=== PATIENT | female | born 1930 | race African-American/Black ===

== ENCOUNTER 2018-11-22 11:34 | Emergency (ER) | payer MEDICARE ==
[~2018-11-22] VITALS: Ht 170.2 cm; Wt 69.4 kg
--- NOTE | 2018-11-22 12:55 | RAD ---
Number CT HEAD AND CERVICAL SPINE WO Clinical indications: FALL 2 DAYS AGO. HEAD INJURY. COMPARISON: None available. NONCONTRAST HEAD CT Technique: Noncontrast axial cross sectional scanning of the head was performed. PQRS compliance Statement One or more of the following individualized dose reduction techniques were utilized for this study: 1. Automated exposure control 2. Adjustment of the mA and/or kV according to patient size 3. Use of iterative reconstruction technique Findings: No acute intracranial hemorrhage or midline shift or mass-effect or hydrocephalus or extra-axial fluid collection is seen. Mild bilateral periventricular white matter hypodensity is seen consistent with chronic small vessel ischemic disease in this age group. No skull fracture or pneumocephalus is seen. No opacification of the mastoid sinuses or the paranasal sinuses is seen. The maxillary sinuses are not completely seen in this study. Impression: No acute intracranial abnormality is seen. Laceration injury and small subcutaneous soft tissue swelling of the upper posterior midline of the head is seen. No skull fracture is evident. NONCONTRAST CERVICAL SPINE CT TECHNIQUE: Noncontrast helical CT scanning of the cervical spine was performed. Multiplanar 2-D reconstructions were generated. FINDINGS: No acute fracture or discitis or lytic process is evident. Grade 1 anterolisthesis of C2-3 and C3-4 and C7-T1 is seen. This is secondary to degenerative facet arthropathy. No perching of facet joints is evident. There is significant degenerative disc space narrowing and endplate spurring at C4-5 and C5-6 and C6-7 and to a lesser extent C7-T1. This is also seen at T1-T2. Moderate spinal canal stenosis is seen at C4-5 and C5-6 and C6-7. IMPRESSION: No acute fracture. Degenerative cervical spondylosis. Electronically signed by: John Doran MD (11/22/2018 12:52 PM) [id number]
[2018-11-22 12:58] LABS: BILIRUBIN,URINE NEGATIVE (NEG); CLARITY,URINE CLEAR; COLOR,URINE YELLOW; NITRITE,URINE NEGATIVE (NEG); PROTEIN,URINE NEGATIVE (NEG-TRACE)
[2018-11-22 13:16] LABS: SQUAMOUS EPITHELIAL CELL,UR MOD /LPF
[2018-11-22 13:17] LABS: BACTERIA,URINE 0 /HPF (0-FEW); RBC,URINE 0 /HPF (0-2)
[2018-11-22 14:00] VITALS: BP 183/81
[2018-11-22] MEDS ORDERED: CEPH500T PO (14:12)
--- NOTE | 2018-11-22 14:13 | PHYS DOC ---
Past Medical History Past Medical History: High Cholesterol, Hypertension Past Surgical History: No Surgical History Alcohol Use: None Drug Use: None Adult General Chief Complaint Chief Complaint: MECHANICAL FALL HPI HPI Patient is a 88 year old female with history of high cholesterol, hypertension , who presents to the ED today to be evaluated after falling 2 days ago. Patient herself has no complaints. Patient is in the ED with the daughter who states they are driving to [place] tomorrow and would like patient to be checked out to make sure everything is okay before they proceed for their trip. Patient herself states she was ambulating, she states she lost her balance and fell back hitting her head on the ground. Patient denies any loss of consciousness, denies being on any anticoagulants. Denies any pain anywhere today. Review of Systems Review of Systems Constitutional: Denies fever or chills [] Eyes: Denies change in visual acuity, redness, or eye pain [] HENT: Denies nasal congestion or sore throat [] Respiratory: Denies cough or shortness of breath [] Cardiovascular: No additional information not addressed in HPI [] GI: Denies abdominal pain, nausea, vomiting, bloody stools or diarrhea [] : Denies dysuria or hematuria [] Musculoskeletal: Denies back pain or joint pain [] Integument: Denies rash or skin lesions [] Neurologic: Hit head on the ground. Denies headache, focal weakness or sensory changes [] All other systems were reviewed and found to be within normal limits, except as documented in this note. Allergies Allergies Allergies Coded Allergies Type Severity Reaction Last Updated Verified No Known Drug Allergies 11/22/18 No Physical Exam Physical Exam Constitutional: Well developed, well nourished, no acute distress, non-toxic appearance. [] HENT: Normocephalic, atraumatic, bilateral external ears normal, oropharynx moist, no oral exudates, nose normal. [] Eyes: PERRLA, EOMI, conjunctiva normal, no discharge. [] Neck: Normal range of motion, no tenderness, supple, no stridor. [] Cardiovascular:Heart rate regular rhythm, no murmur [] Lungs & Thorax: Bilateral breath sounds clear to auscultation [] Abdomen: Bowel sounds normal, soft, no tenderness, no masses, no pulsatile masses. [] Skin: Warm, dry, no erythema, no rash. [] Back: No tenderness, no CVA tenderness. [] Extremities: No tenderness, no cyanosis, no clubbing, ROM intact, no edema. [] Neurologic: Alert and oriented X 3, normal motor function, normal sensory function, no focal deficits noted. Cranial nerves II through XII intact. Dried blood noted on posterior scalp with a small hematoma. Psychologic: Affect normal, judgement normal, mood normal. [] Current Patient Data Vital Signs Vital Signs Date Time Temp Pulse Resp B/P (MAP) Pulse Ox O2 Delivery O2 Flow Rate FiO2 11/22/18 12:30 84 20 96 11/22/18 11:40 98.4 178/86 (116) Room Air 98.4 Lab Values Laboratory Tests Test 11/22/18 12:48 Urine Collection Type Unknown Urine Color Yellow Urine Clarity Clear Urine pH 6.0 Urine Specific [place] 1.010 Urine Protein Negative mg/dL (NEG-TRACE) Urine Glucose (UA) Negative mg/dL (NEG) Urine Ketones (Stick) Negative mg/dL (NEG) Urine Blood Negative (NEG) Urine Nitrite Negative (NEG) Urine Bilirubin Negative (NEG) Urine Urobilinogen Dipstick 1.0 mg/dL (0.2 mg/dL) Urine Leukocyte Esterase Small (NEG) Urine RBC 0 /HPF (0-2) Urine WBC 1-4 /HPF (0-4) Urine Squamous Epithelial Cells Mod /LPF Urine Transitional Epithelial Cells Occ /LPF Urine Renal Epithelial Cells Few /LPF Urine Bacteria 0 /HPF (0-FEW) Urine Mucus Mod /LPF EKG EKG [] Radiology/Procedures Radiology/Procedures []PROCEDURE: CT HEAD AND CERVICAL SPINE WO ADDENDUM Addendum: 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 Electronically signed by: Paulina Doran MD (11/22/2018 1:08 PM) [id number] DICTATED AND SIGNED BY: PAULINA DORAN MD DATE: 11/22/18 0105 CC: JAMES MUSTAFA APRN; NON,STAFF; UNKNOWN PCP NAME ~ Number CT HEAD AND CERVICAL SPINE WO Clinical indications: FALL 2 DAYS AGO. HEAD INJURY. COMPARISON: None available. NONCONTRAST HEAD CT Technique: Noncontrast axial cross sectional scanning of the head was performed. PQRS compliance Statement One or more of the following individualized dose reduction techniques were utilized for this study: 1. Automated exposure control 2. Adjustment of the mA and/or kV according to patient size 3. Use of iterative reconstruction technique Findings: No acute intracranial hemorrhage or midline shift or mass-effect or hydrocephalus or extra-axial fluid collection is seen. Mild bilateral periventricular white matter hypodensity is seen consistent with chronic small vessel ischemic disease in this age group. No skull fracture or pneumocephalus is seen. No opacification of the mastoid sinuses or the paranasal sinuses is seen. The maxillary sinuses are not completely seen in this study. Impression: No acute intracranial abnormality is seen. Laceration injury and small subcutaneous soft tissue swelling of the upper posterior midline of the head is seen. No skull fracture is evident. NONCONTRAST CERVICAL SPINE CT TECHNIQUE: Noncontrast helical CT scanning of the cervical spine was performed. Multiplanar 2-D reconstructions were generated. FINDINGS: No acute fracture or discitis or lytic process is evident. Grade 1 anterolisthesis of C2-3 and C3-4 and C7-T1 is seen. This is secondary to degenerative facet arthropathy. No perching of facet joints is evident. There is significant degenerative disc space narrowing and endplate spurring at C4-5 and C5-6 and C6-7 and to a lesser extent C7-T1. This is also seen at T1-T2. Moderate spinal canal stenosis is seen at C4-5 and C5-6 and C6-7. IMPRESSION: No acute fracture. Degenerative cervical spondylosis. Electronically signed by: Paulina Doran MD (11/22/2018 12:52 PM) [id number] DICTATED and SIGNED BY: PAULINA DORAN MD DATE: 11/22/18 1252 Course & Med Decision Making Course & Med Decision Making Pertinent Labs and Imaging studies reviewed. (See chart for details) This is a 88-year-old. Patient presented to the ED today to be evaluated status post falling 2 days ago from standing position, no loss of consciousness, no complaints in the ED. See history of present illness. Patient's daughter states they going to [place] tomorrow and would like patient to be checked out to make sure everything is okay. CT of the head and cervical spine are negative. Tetanus up-to-date. Discharged to home. Follow-up with PCP in 1-2 weeks. Dragon Disclaimer Dragon Disclaimer This electronic medical record was generated, in whole or in part, using a voice recognition dictation system. Departure Departure Impression: Primary Impression: Urinary tract infection Additional Impressions: Fall from standing Scalp contusion Referrals: UNKNOWN PCP NAME (PCP) follow up with your doctor in 1-2 weeks Patient Instructions: Fall Prevention and Home Safety, Urinary Tract Infection Additional Instructions: You were evaluated in the emergency room. Please apply ice to the area and the back of the head that hit the ground when you fell. You can take Tylenol as needed for pain. He also have urinary tract infection, ensure you complete your antibiotics and follow-up with your own doctor in 1-2 weeks. Scripts Cephalexin (CEPHALEXIN) 500 Mg Tablet 1 TAB PO BID, #14 TAB Prov: JAMES MUSTAFA APRN 11/22/18 Problem Qualifiers Primary Impression: Urinary tract infection Urinary tract infection type: site unspecified Hematuria presence: without hematuria Qualified Codes: N39.0 - Urinary tract infection, site not specified Additional Impressions: Fall from standing Encounter type: initial encounter Qualified Codes: W19.XXXA - Unspecified fall, initial encounter Scalp contusion Encounter type: initial encounter Qualified Codes: S00.03XA - Contusion of scalp, initial encounter JAMES MUSTAFA APRN Nov 22, 2018 14:13
== END 2018-11-22 14:20 | disposition home or self-care (01) ==
LOC: ER 11:34
DX: S00.03XA Contusion of scalp, initial encounter (principal); N39.0 Urinary tract infection, site not specified; E78.00 Pure hypercholesterolemia, unspecified; I10 Essential (primary) hypertension; W18.09XA Striking against other object with subsequent fall, initial encounter; Y93.89 Activity, other specified; Y92.89 Other specified places as the place of occurrence of the external cause; Y99.8 Other external cause status
CPT/HCPCS: 70450; 72125; 81001; 87086; 99285-25